=== PATIENT | female | born 1985 | race Asian ===

== ENCOUNTER 2018-09-30 07:03 | Emergency (ER) | payer OTHER ==
[~2018-09-30] VITALS: Ht 160 cm; Wt 65.9 kg
[2018-09-30 07:07] VITALS: BP 134/85
[2018-09-30] MEDS ORDERED: albuterol 2.5 MG/3 ML nebule NEB ONE (07:20)
[2018-09-30] MEDS ORDERED: azithromycin 250mg tablet PO ONE (07:20)
[2018-09-30] MEDS ORDERED: ALBU18HF2 INH (07:36)
[2018-09-30] MEDS ORDERED: GUAI120L55 PO (07:36)
[2018-09-30] MEDS ORDERED: AZIT250T2 PO (07:36)
== END 2018-09-30 07:52 | disposition home or self-care (01) ==
LOC: ER 07:04
DX: J20.9 Acute bronchitis, unspecified (principal); J45.909 Unspecified asthma, uncomplicated; Z79.2 Long term (current) use of antibiotics; Z79.899 Other long term (current) drug therapy
CPT/HCPCS: 94640; 94760; 99283

== ENCOUNTER 2021-08-19 16:33 | Emergency (ER) | payer BC, OTHER ==
[~2021-08-19] VITALS: Ht 160 cm; Wt 70.5 kg
[~2021-08-19 16:33] MED LIST: ALBU18HF2 INH; GUAI120L55 PO
[2021-08-19 18:00] LABS: EOSINOPHILS % (AUTO) 0.4 % (0-6); HEMATOCRIT 39.7 % (35.0-45.0); MEAN CORPUSCULAR HEMOGLOBIN 28.4 PG (27.0-31.0); MEAN PLATELET VOLUME 9.4 FL (7.4-10.4); MONOCYTES # (AUTO) 1.2 X10'3 (0-0.9); NEUTROPHILS # (AUTO) 7.8 X10'3 (1.8-7.7)
[2021-08-19 18:01] LABS: BASOPHILS # (AUTO) 0.1 X10'3 (0-0.2); BASOPHILS % (AUTO) 0.5 % (0-1); HEMOGLOBIN 13.3 g/dl (12.0-16.0); LYMPHOCYTES # (AUTO) 2.2 X10'3 (1.1-4.8); LYMPHOCYTES % (AUTO) 19.7 % (21-51); MEAN CORPUSCULAR HGB CONC 33.5 g/dL (33.0-36.5); MEAN CORPUSCULAR VOLUME 84.9 FL (78-98); MONOCYTES % (AUTO) 10.7 % (2-12); NEUTROPHILS % (AUTO) 68.7 % (42-75); PLATELET COUNT 328 X10'3 (140-440); RED BLOOD COUNT 4.67 X10'6 (4.20-5.60); RED CELL DISTRIBUTION WIDTH 14.4 % (11.5-14.5); WHITE BLOOD COUNT 11.3 X10'3 (4.5-11.0)
[2021-08-19 18:12] LABS: ALANINE AMINOTRANSFERASE 37 U/L (12-78); ALBUMIN 3.5 G/DL (3.4-5.0); ALBUMIN/GLOBULIN RATIO 0.9 (1.1-1.5); ALKALINE PHOSPHATASE 74 IU/L (46-116); ANION GAP 10 (8-16); ASPARTATE AMINO TRANSFERASE 16 U/L (10-37); BILIRUBIN,TOTAL 0.2 MG/DL (0.1-1.0); BLOOD UREA NITROGEN 14 MG/DL (7-18); BUN/CREATININE RATIO 16.1 (6.6-38.0); CALCIUM 8.5 MG/DL (8.5-10.1); CHLORIDE 108 MMOL/L (99-107); CREATININE 0.87 MG/DL (0.40-0.90); GLUCOSE 93 MG/DL (70-104); POTASSIUM 3.9 MMOL/L (3.5-5.1); SODIUM 142 MMOL/L (135-145); TOTAL CARBON DIOXIDE 24.2 MMOL/L (24-32); TOTAL PROTEIN 7.6 G/DL (6.4-8.2); eGFR 74 ML/MIN
[2021-08-19 18:31] VITALS: BP 134/82
[2021-08-19] MEDS ORDERED: METO-539 PO (19:32)
[2021-08-19] MEDS ORDERED: metoprolol succinate 25mg (24-HOUR) SR. Tablet PO SCH (19:35)
[2021-08-19] MEDS ORDERED: normal saline 1000ML IV soln IVB ONE (19:35)
== END 2021-08-19 20:18 | disposition home or self-care (01) ==
LOC: ER 16:33
DX: R00.0 Tachycardia, unspecified (principal); R00.2 Palpitations; R06.02 Shortness of breath; J45.909 Unspecified asthma, uncomplicated; Z79.899 Other long term (current) drug therapy
CPT/HCPCS: 36415; 80053; 83880; 84443; 84484; 85025; 93005; 96360; 99284; J7030

== ENCOUNTER 2021-09-08 10:23 | Emergency (ER) | payer BC ==
[~2021-09-08] VITALS: Ht 160 cm; Wt 70.5 kg
[~2021-09-08 10:23] MED LIST changes: +METO-539 PO
[2021-09-08 10:46] VITALS: BP 138/92
[2021-09-08] MEDS ORDERED: benzonatate 100mg capsule PO ONE (11:05)
[2021-09-08] MEDS ORDERED: BENZ-38 PO (11:28)
== END 2021-09-08 11:36 | disposition home or self-care (01) ==
LOC: ER 10:23
DX: J22 Unspecified acute lower respiratory infection (principal); Z20.822 Contact with and (suspected) exposure to COVID-19; R05.9 Cough, unspecified; R09.89 Other specified symptoms and signs involving the circulatory and respiratory systems; J45.909 Unspecified asthma, uncomplicated; Z79.899 Other long term (current) drug therapy
CPT/HCPCS: 87635; 99283; C9803

== ENCOUNTER 2022-12-10 09:31 | Emergency (ER) | payer BC, OTHER ==
[~2022-12-10] VITALS: Ht 160 cm; Wt 68.2 kg
[~2022-12-10 09:31] MED LIST changes: -METO-539 PO
[2022-12-10 09:33] VITALS: BP 150/83
== END 2022-12-10 10:44 | disposition home or self-care (01) ==
LOC: ER 09:31
DX: S67.195A Crushing injury of left ring finger, initial encounter (principal); J45.909 Unspecified asthma, uncomplicated; W46.0XXA Contact with hypodermic needle, initial encounter; Y93.89 Activity, other specified; Y92.89 Other specified places as the place of occurrence of the external cause; Y99.8 Other external cause status
CPT/HCPCS: 99281

== ENCOUNTER 2023-04-13 04:52 | Emergency (ER) | payer BC, OTHER ==
[~2023-04-13] VITALS: Ht 160 cm; Wt 70.5 kg
[2023-04-13 05:03] VITALS: BP 135/93
[2023-04-13] MEDS ORDERED: sucralfate 1 gm tablet PO ONE (05:55)
[2023-04-13] MEDS ORDERED: LIDOcaine Viscous 15ml cup MM ONE (05:55)
[2023-04-13] MEDS ORDERED: PENI500T2 PO ×2 (06:13→06:19)
[2023-04-13] MEDS ORDERED: BENZ-38 PO ×2 (06:13→06:19)
[2023-04-13] MEDS ORDERED: ibuprofen 200mg tablet PO ONE (06:35)
== END 2023-04-13 06:43 | disposition home or self-care (01) ==
LOC: ER 04:52
DX: J02.9 Acute pharyngitis, unspecified (principal); J45.909 Unspecified asthma, uncomplicated; Z79.899 Other long term (current) drug therapy
CPT/HCPCS: 99284

== ENCOUNTER 2023-05-03 16:04 | Emergency (ER) | payer BC ==
[~2023-05-03] VITALS: Ht 160 cm; Wt 70.0 kg
[~2023-05-03 16:04] MED LIST changes: +BENZ-38 PO; +PENI500T2 PO
[2023-05-03] MEDS ORDERED: HYDR-3973 PO (16:14)
[2023-05-03] MEDS ORDERED: AMOX-117 PO (16:14)
[2023-05-03] MEDS ORDERED: IBUP-1986 PO (16:14)
[2023-05-03 16:25] VITALS: BP 118/74
[2023-05-03] MEDS ORDERED: ketorolac trometh inj. 60 MG/2 ML VIAL IM ONE (16:45)
== END 2023-05-03 17:48 | disposition home or self-care (01) ==
LOC: ER 16:05
DX: K00.6 Disturbances in tooth eruption (principal); K04.7 Periapical abscess without sinus; Z79.2 Long term (current) use of antibiotics; Z79.899 Other long term (current) drug therapy
CPT/HCPCS: 99283